=== PATIENT | male | born 1985 | race Caucasian/White ===

== ENCOUNTER 2019-01-01 11:59 | Emergency (ER) | payer OTHER, BC ==
[~2019-01-01] VITALS: Ht 167.6 cm; Wt 77.1 kg
[2019-01-01] MEDS ORDERED: VENL25 PO (12:12)
[2019-01-01] MEDS ORDERED: Ranitidine HCl150 M1 PO (12:12)
[2019-01-02 04:06] LABS: HCV ANTIBODY <0.1 (0.0-0.9)
[2019-01-02 06:07] LABS: HIV SCREEN 4TH GENERATION WRFX Non Reactive (Non Reactive)
== END 2019-01-01 12:39 | disposition home or self-care (01) ==
LOC: ER 11:59
PROVIDERS: Physician Assistant
DX: Z77.21 Contact with and (suspected) exposure to potentially hazardous body fluids (principal); K21.9 Gastro-esophageal reflux disease without esophagitis; Z79.899 Other long term (current) drug therapy
CPT/HCPCS: 36415; 84460; 86317; 86803; 87389; 99283

== ENCOUNTER 2024-01-18 02:46 | Emergency (ER) | payer BC ==
[~2024-01-18] VITALS: Ht 177.8 cm; Wt 83.9 kg
[~2024-01-18 02:46] MED LIST: Ranitidine HCl150 M1 PO; VENL25 PO
[2024-01-18 02:59] VITALS: BP 140/97
[2024-01-18] MEDS ORDERED: OMEP20ER PO (03:05)
[2024-01-18 04:15] LABS: Influenza A, PCR NEGATIVE (NEGATIVE); Influenza B, PCR NEGATIVE (NEGATIVE); Resp Syncytial Virus, PCR NEGATIVE (NEGATIVE); SARS-Cov-2 (COVID-19) PCR, MMC NEGATIVE (NEGATIVE)
[2024-01-18] MEDS ORDERED: Amoxicillin/Clavulanate K 875 MG Tab PO ONE (04:15)
[2024-01-18] MEDS ORDERED: Ketorolac Tromethamine 30mg Vial IV ONE (04:15)
[2024-01-18] MEDS ORDERED: Acetaminophen 500 MG Tab PO ONE (04:15)
[2024-01-18] MEDS ORDERED: NS 1,000 ML IV SCH (04:15)
[2024-01-18] MEDS ORDERED: AMOCLA875 PO (04:17)
[2024-01-18] MEDS ORDERED: TraMADol HCl 50 MG Tab PO ONE (05:15)
== END 2024-01-18 06:18 | disposition home or self-care (01) ==
LOC: ER 02:46
PROVIDERS: Emergency Medicine
DX: H66.93 Otitis media, unspecified, bilateral (principal); J02.0 Streptococcal pharyngitis; K21.9 Gastro-esophageal reflux disease without esophagitis; Z79.899 Other long term (current) drug therapy
CPT/HCPCS: 0241U; 87430; 96361; 96374; 99284-25; A9270; J1885; J7030

== ENCOUNTER → 2024-01-28 | Outpatient (CLI) | payer BC ==
[~2024-01-28] MED LIST changes: +AMOCLA875 PO; +OMEP20ER PO
== END | disposition home or self-care (01) ==
LOC: LAB 15:09 → LAB SHORT 15:09
DX: H65.03 Acute serous otitis media, bilateral (principal); H60.393 Other infective otitis externa, bilateral
CPT/HCPCS: 87070; 87147; 87205